=== PATIENT | female | born 1945 | race Caucasian/White ===

== ENCOUNTER 2019-01-02 10:23 | Emergency (ER) | payer MEDICARE ==
[2019-01-02 10:37] VITALS: BP 148/55
--- NOTE | 2019-01-02 11:33 | UC ---
UC General HPI - HPI Summary HPI Summary: pt is c/o a 2 day hx of episodic pains in her R lower abdomen with nausea. she has some chronic nausea that is worsened with this. this am notes some burning on urination. no fever, vomiting or diarrhea but "my stool is lose but formed". nursing reported a bout of pain here that double the pt over. - History of Current Complaint Chief Complaint: UCAbdominalPain Stated Complaint: URINARY,ABDOMINAL PAIN,NAUSEA Time Seen by Provider: 01/02/19 11:24 Hx Obtained From: Patient Hx Last Menstrual Period: n/a Pain Intensity: 5 Associated Signs & Symptoms: Positive: Abdominal Pain, Dysuria - this am only, Nausea. Negative: Diarrhea, Fever, Vomiting - Allergy/Home Medications Allergies/Adverse Reactions: Allergies Allergy/AdvReac Type Severity Reaction Status Date / Time No Known Allergies Allergy Verified 01/02/19 10:33 Home Medications: Home Medications Aspirin [Aspirin Childrens 81 MG] 81 mg PO DAILY 01/02/19 [History Confirmed ] Cholecalciferol TAB* [Vitamin D TAB*] 1,000 unit PO DAILY 01/02/19 [History Confirmed 01/02/19] Torsemide TAB* [Demadex*] 20 mg PO DAILY 01/02/19 [History Confirmed 01/02/19] PMH/Surg Hx/FS Hx/Imm Hx - Additional Past Medical History Additional PMH: gout Cardiovascular History: Hypertension, Pacemaker/ICD - Surgical History Surgical History: Yes Surgery Procedure, Year, and Place: PACEMAKER, APPY, RT [facility] 1965, [facility] - Family History Known Family History: Positive: Hypertension - Social History Alcohol Use: None Substance Use Type: None Smoking Status (MU): Never Smoked Tobacco Review of Systems All Other Systems Reviewed And Are Negative: Yes Gastrointestinal: Positive: Abdominal Pain, Nausea Physical Exam Triage Information Reviewed: Yes Appearance: Well-Appearing Vital Signs: Initial Vital Signs Temp 97.1 F 01/02/19 10:31 Pulse 80 01/02/19 10:31 Resp 26 01/02/19 10:31 BP 148/55 01/02/19 10:31 Pulse Ox 99 01/02/19 10:31 Vital Signs Reviewed: Yes Eyes: Positive: Conjunctiva Clear ENT: Positive: Normal ENT inspection Neck: Positive: Supple, Nontender, No Lymphadenopathy Respiratory: Positive: Lungs clear, Normal breath sounds, No respiratory distress Cardiovascular: Positive: RRR, No Murmur Abdomen Description: Positive: Other: - Pt lifted her lower abdomen, no rash or hernias. Hypo active BS. Soft. Tender over R lower lateral abdomen but no mass, HSM, cva tenderness, guarding or rebound. Musculoskeletal: Positive: ROM Intact Neurological: Positive: Alert Psychological: Positive: Age Appropriate Behavior Skin Exam: Normal Skin: Negative: Rashes Course/Dx - Course Course Of Treatment: u/a=trace blood. 0.2 urobilogen with culture pending. rest is unremarkable. - Differential Dx - Multi-Symptom Differential Diagnoses: Other - prior appendectomy. u/a=unremarkable. doubt renal colic but it is possible. obstruction bowel, diverticular dz/bowel pathology possible. doubt mesenteric ischemia but is still possible. ER transfer advised but pt is refusing despite risk for worsening, disability and . she is a&ox3 thus I must respect her transfer refusal. - Diagnoses Provider Diagnosis: Left against medical advice, Abdominal pain Discharge - Sign-Out/Discharge Documenting (check all that apply): Patient Departure All imaging exams completed and their final reports reviewed: No Studies - Discharge Plan Condition: Stable Disposition: AGAINST MEDICAL ADVICE Patient Education Materials: Acute Abdominal Pain (DC), Against Medical Advice (ED) Referrals: Jorge L Rowan DO [Primary Care Provider] - As Soon As Possible Additional Instructions: GO TO THE ER AT ANY TIME IF YOU CHANGE YOUR MIND - Billing Disposition and Condition Condition: STABLE Disposition: Against Medical Advice - Attestation Statements Provider Attestation: I was available for consult. This patient was seen by the MELANIE. The patient was not presented to, seen by, or examined by me. -Blayne
== END 2019-01-02 11:47 | disposition left against medical advice (07) ==
LOC: UCCORT 10:23
DX: R30.0 Dysuria (principal); R10.9 Unspecified abdominal pain; I10 Essential (primary) hypertension; R11.0 Nausea; Z95.0 Presence of cardiac pacemaker
CPT/HCPCS: 81003; 87086; 99212; G0463